=== PATIENT | female | born 1985 ===

== ENCOUNTER 2018-10-09 10:35 | Emergency (ER) | payer OTHER ==
[2018-10-09 10:41] VITALS: BMI 22.4
[2018-10-09 10:48] VITALS: TEMP 97.6; O2SAT 100
--- NOTE | 2018-10-09 11:22 | ED PDOC ---
Arrival/HPI - General Historian: Patient - History of Present Illness Narrative History of Present Illness (Text): Patient is a 32 F with no PMH who presents with left palm warmth since last night. She states the symptoms are intermittent and are not painful. She endorses having rested her head on her hands in a static position for approximately 1 hour prior to symptoms starting. She denies any pain numbness weakness or tingling. She denies any family history of autoimmune disorders or lupus. 10/09/18 11:11 Time/Duration: Prior to Arrival, 24 hours Symptom Onset: Gradual Symptom Course: Improving Quality: Other (warmth) <Corrine Winter - Last Filed: 10/09/18 11:48> <Shan Mccarty - Last Filed: 10/09/18 12:55> - General Chief Complaint: Upper Extremity Problem/Injury Time Seen by Provider: 10/09/18 10:55 Past Medical History - Provider Review Nursing Documentation Reviewed: Yes - Infectious Disease Hx of Infectious Diseases: None - Reproductive Menopause: No - Psychiatric Hx Substance Use: No - Anesthesia Hx Anesthesia: No Hx Anesthesia Reactions: No Hx Malignant Hyperthermia: No - Suicidal Assessment Feels Threatened In Home Enviroment: No <Corrine Winter - Last Filed: 10/09/18 11:48> Family/Social History - Physician Review Nursing Documentation Reviewed: Yes Family/Social History: No Known Family HX Smoking Status: Former Smoker Hx Alcohol Use: No Hx Substance Use: No <Corrine Winter - Last Filed: 10/09/18 11:48> Allergies/Home Meds <Corrine Winter - Last Filed: 10/09/18 11:48> <Shan Mccarty - Last Filed: 10/09/18 12:55> Allergies/Adverse Reactions: Allergies No Known Allergies Allergy (Verified 10/09/18 10:41) Review of Systems - Physician Review All systems were reviewed & negative as marked: Yes - Review of Systems Constitutional: absent: Fatigue, Fevers, Night Sweats Eyes: absent: Vision Changes Respiratory: absent: Cough Cardiovascular: absent: Chest Pain Gastrointestinal: absent: Abdominal Pain, Nausea, Vomiting Musculoskeletal: absent: Arthralgias, Back Pain Skin: absent: Rash, Skin Lesions Neurological: absent: Headache, Dizziness, Focal Weakness, Gait Changes, Speech Changes, Facial Droop, Disequilibrium Endocrine: absent: Diaphoresis <Mei Winterah - Last Filed: 10/09/18 11:48> Physical Exam Vital Signs Reviewed: Yes Vital Signs Temp Pulse Resp BP Pulse Ox 10/09/18 10:47 97.6 F 99 H 18 127/82 100 Temperature: Afebrile Blood Pressure: Normal Respiratory Rate: Normal Appearance: Positive for: Well-Appearing, Non-Toxic, Comfortable Pain Distress: None Mental Status: Positive for: Alert and Oriented X 3 - Systems Exam Head: Present: Atraumatic, Normocephalic Extroacular Muscles: Present: EOMI Mouth: Present: Moist Mucous Membranes Neck: Present: Normal Range of Motion Respiratory/Chest: Present: Clear to Auscultation, Good Air Exchange. No: Respiratory Distress, Accessory Muscle Use, Wheezes, Rales, Rhonchi Cardiovascular: Present: Normal S1, S2 Abdomen: No: Tenderness, Distention, Peritoneal Signs, Rebound Upper Extremity: Present: Normal Inspection, Normal ROM, NORMAL PULSES, Neurovascularly Intact, Norm 2-Pt Discrimination, Other (negative Phalen and Tinel test). No: Cyanosis, Edema, Tenderness, Swelling, Erythema, Temperature Abnormalties, Capillary Refill < 2s, Deformity Lower Extremity: Present: Normal Inspection, NORMAL PULSES. No: Edema, CALF TENDERNESS Neurological: Present: GCS=15, CN II-XII Intact, Speech Normal, Motor Func Grossly Intact, Normal Sensory Function, Memory Normal Skin: Present: Warm, Dry, Normal Color. No: Rashes Psychiatric: Present: Alert, Oriented x 3, Normal Insight, Normal Concentration <Mei Winterah Filed: 10/09/18 11:48> Vital Signs Temp Pulse Resp BP Pulse Ox 10/09/18 11:49 97.6 F 87 16 104/67 100 10/09/18 10:47 97.6 F 99 H 18 127/82 100 <Shan Mccarty - Last Filed: 10/09/18 12:55> Medical Decision Making ED Course and Treatment: 10/09/18 11:30 Patient is a 32 year old female presenting to the emergency department complaining of a left upper extremity discomfort. In agreement with resident note, which includes further HPI details. Patient was seen and evaluated with resident, came up with plan and treatment together. 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 MD/ has examined the patient and agrees with the treatment plan. - Scribe Statement The provider has reviewed the documentation as recorded by the Maryibe Marie Villar All medical record entries made by the Scribe were at my direction and personally dictated by me. I have reviewed the chart and agree that the record accurately reflects my personal performance of the history, physical exam, medical decision making, and the department course for this patient. I have also personally directed, reviewed, and agree with the discharge instructions and disposition. <Shan Mccarty - Last Filed: 10/09/18 12:55> Disposition/Present on Arrival - Present on Arrival Any Indicators Present on Arrival: No History of DVT/PE: No History of Uncontrolled Diabetes: No Urinary Catheter: No History of Decub. Ulcer: No History Surgical Site Infection Following: None - Disposition Have Diagnosis and Disposition been Completed?: Yes Disposition Time: 11:40 Patient Plan: Discharge <Mei Winterah - Last Filed: 10/09/18 11:48> <Shan Mccarty - Last Filed: 10/09/18 12:55> - Disposition Diagnosis: Paresthesia of arm Disposition: HOME/ ROUTINE Condition: GOOD Discharge Instructions (ExitCare): Paresthesias (DC) Additional Instructions: Upon discharge please follow up with your primary care physician within 3-5 days. you have been given a referral to a neurologist Dr. Mir, for further evaluation. Please call his office to make an appointment upon discharge. If you have persistence of your symptoms, worsening of symptoms or if new symptoms develop please return to the nearest emergency department immediately for further evaluation. Referrals: Garfield Mir MD [Staff Provider] - Follow up with primary Forms: [employer] ([place]), WORK NOTE
[2018-10-09 11:50] VITALS: BP 104/67; PULSE 87; RESP 16
== END 2018-10-09 12:15 | disposition home or self-care (01) ==
LOC: ED 10:35
DX: R20.2 Paresthesia of skin (principal); Z87.891 Personal history of nicotine dependence

== ENCOUNTER 2019-02-20 13:14 | Emergency (ER) | payer OTHER ==
[2019-02-20 13:14] VITALS: BMI 22.4
[2019-02-20 13:22] VITALS: BP 106/72; PULSE 79; RESP 18; TEMP 98.8; O2SAT 98
--- NOTE | 2019-02-20 14:51 | ED PDOC ---
Arrival/HPI - General Chief Complaint: Lower Extremity Problem/Injury Time Seen by Provider: 02/20/19 13:15 Historian: Patient - History of Present Illness Narrative History of Present Illness (Text): 02/20/19 15:28 33-year-old female with knee pain x3 days. Patient states about 3 days ago she was doing squats and when she came up from the squat she felt pain in the right knee. Patient states since then she is been having pain with ambulation and going up stairs. No medications have been taken for pain at home. Patient states the pain is minimal at this time and does not need any medications. Patient states she is concerned because she wants to go back to the gym but she is worried that the knee may give out on her. Patient denies numbness weakness or tingling in the extremities. States the pain is intermittently located along the inferior anterior aspect of the knee. No other complaints Symptom Onset: Sudden Symptom Course: Intermittent Quality: Aching Severity Level: Mild Past Medical History - Provider Review Nursing Documentation Reviewed: Yes - Travel History Have you recently traveled outside [place] w/in the past 3 mons?: No - Infectious Disease Hx of Infectious Diseases: None - Psychiatric Hx Substance Use: No - Surgical History Other/Comment: breast reduction - Anesthesia Hx Anesthesia: No Hx Anesthesia Reactions: No Hx Malignant Hyperthermia: No - Suicidal Assessment Feels Threatened In Home Enviroment: No Family/Social History - Physician Review Nursing Documentation Reviewed: Yes Family/Social History: Unknown Family HX Smoking Status: Former Smoker Hx Alcohol Use: No Hx Substance Use: No Allergies/Home Meds Allergies/Adverse Reactions: Allergies No Known Allergies Allergy (Verified 02/20/19 13:22) Review of Systems - Review of Systems Constitutional: absent: Fatigue, Fevers Respiratory: absent: SOB, Cough Cardiovascular: absent: Chest Pain, Palpitations Gastrointestinal: absent: Abdominal Pain, Nausea, Vomiting Musculoskeletal: Arthralgias Skin: absent: Rash, Pruritis Neurological: absent: Headache, Dizziness Psychiatric: absent: Anxiety, Depression, Suicidal Ideation Physical Exam Vital Signs Reviewed: Yes Vital Signs Temp Pulse Resp BP Pulse Ox 02/20/19 13:21 98.8 F 79 18 106/72 98 Temperature: Afebrile Blood Pressure: Normal Pulse: Regular Respiratory Rate: Normal Appearance: Positive for: Well-Appearing, Non-Toxic, Comfortable Pain Distress: None Mental Status: Positive for: Alert and Oriented X 3 - Systems Exam Head: Present: Atraumatic Mouth: Present: Moist Mucous Membranes Neck: Present: Normal Range of Motion Respiratory/Chest: Present: Clear to Auscultation, Good Air Exchange. No: Respiratory Distress, Accessory Muscle Use Cardiovascular: Present: Regular Rate and Rhythm, Normal S1, S2. No: Murmurs Upper Extremity: Present: Normal Inspection Lower Extremity: Present: Normal Inspection, NORMAL PULSES, Normal ROM, Neurovascularly Intact. No: Tenderness, Swelling, Erythema, Deformity Neurological: Present: GCS=15, Speech Normal Skin: Present: Warm, Dry, Normal Color. No: Rashes Psychiatric: Present: Alert, Oriented x 3 Medical Decision Making ED Course and Treatment: 02/20/19 15:34 Patient nontoxic well-appearing in no distress with stable vital signs X-rays of the knee: no fracture Patient refused medications for pain Patient placed in knee immobilizer. crutches given for ambulation I discussed all results with patient advised to followup with the orthopedist for the next 2 days. Return if symptoms worsen persist or new symptoms develop I advised the patient that although the xrays show no fracture; there is still a possibility for ligamentous or tendon injury the patient must see the orthopedist for further evaluation Patient verbalizes understanding of discharge instructions and need for immediate followup. Impression: knee pain Motrin every 6 hours as needed for pain Rest, ice, compression, elevation Use crutches for ambulation Followup with the orthopedist within the next 2 days Followup with primary care physician within the next 2 days Return if symptoms worsen persist or if new symptoms develop - RAD Interpretation Radiology Orders: 02/20/19 14:18 KNEE W PATELLA RIGHT 3 VIEW [RAD] Stat Disposition/Present on Arrival - Present on Arrival Any Indicators Present on Arrival: No History of DVT/PE: No History of Uncontrolled Diabetes: No Urinary Catheter: No History of Decub. Ulcer: No History Surgical Site Infection Following: None - Disposition Have Diagnosis and Disposition been Completed?: Yes Diagnosis: Knee pain Disposition: HOME/ ROUTINE Disposition Time: 14:53 Patient Plan: Discharge Patient Problems: Current Active Problems Problem Status Onset Knee pain Acute Condition: GOOD Discharge Instructions (ExitCare): Knee Pain (DC) Additional Instructions: Motrin every 6 hours as needed for pain Rest, ice, compression, elevation Use crutches for ambulation Followup with the orthopedist within the next 2 days Followup with primary care physician within the next 2 days Return if symptoms worsen persist or if new symptoms develop Prescriptions: Ibuprofen [Motrin] 600 mg PO Q6H PRN #20 tab PRN Reason: pain/fever reduction Referrals: Nury Peña MD [Staff Provider] - Follow up with primary Dana Son MD [Medical Doctor] - Follow up with primary [facility] [Outside] - Follow up with primary [facility] [Outside] - Follow up with primary [facility] [place] [Outside] - Follow up with primary Forms: [employer] (Slovenian), WORK NOTE
--- NOTE | 2019-02-20 15:07 | RAD ---
Date of service: 02/20/2019 PROCEDURE: Right Knee Radiographs. HISTORY: knee pain COMPARISON: None. TECHNIQUE: 3 views obtained. FINDINGS: BONES: Normal. No fracture. JOINTS: Normal. No osteoarthritis. JOINT EFFUSION: None. OTHER FINDINGS: None. IMPRESSION: Normal radiographs of the right knee.
== END 2019-02-20 16:04 | disposition home or self-care (01) ==
LOC: ED 13:14
DX: M25.561 Pain in right knee (principal)